=== PATIENT | male | born 1950 | race Caucasian/White ===

== ENCOUNTER → 2021-10-28 11:47 | Outpatient (BNVA) | payer MEDICARE, MEDICAID, SELFPAY | PROVIDERS: Visit Provider Nurse Practitioner Family | DX: M79.671 Pain in right foot (principal); M10.9 Gout, unspecified; L03.90 Cellulitis, unspecified | CPT/HCPCS: 80053; 84550; 85025 ==

== ENCOUNTER 2021-12-10 13:30 | Outpatient (CLI) | payer MEDICARE, MEDICAID, SELFPAY ==
--- NOTE | 2021-12-10 13:45 | MR_ITS ---
WS: [id number] MRI OF THE RIGHT FOOT WITHOUT GADOLINIUM ENHANCEMENT. INDICATION: Pain anterolateral foot. TECHNIQUE: Sagittal PD, sagittal STIR, axial T1 and STIR PD and T2 imaging. Coronal PD and T2 fat sat imaging. FINDINGS: Diffuse edema with nondisplaced slightly comminuted fractures third and fourth metatarsal. Additional fracture extends into the proximal shaft fourth metatarsal. Diffuse surrounding soft tissu e edema. Normal bone marrow signal in the fifth metatarsal base. Slightly comminuted nondisplaced fra ctures involving the base of the third metatarsal extending to the MTP joint. Additional suspected no ndisplaced fracture involving the base of the second metatarsal. First metatarsal is normal in appear ance. Additional small nondisplaced fracture involving the fifth metatarsal head with edema and small fracture line.Additional suspected nondisplaced fracture involving the lateral cuboid with diffuse e heather. Diffuse dorsal soft tissue edema overlying the metatarsals. Normal ankle mortise. Normal medial and lateral malleolus. Talar dome is normal. Normal calcaneus. Ac hilles enthesophyte. Normal talonavicular joint. Normal cuneiforms. Visualized Achilles is normal. Normal visualized peroneus longus and brevis. Normal partially visuali zed extensor and flexor compartment tendons. A few erosions involving the metatarsal heads. 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 Mild hallux valgus. MR/MR foot RT wo con* [id number] IMPRESSION: 1. Diffuse edema with nondisplaced slightly comminuted fractures involving the third and fourth metatarsal bases. Additional tiny nondisplaced fracture invol ving the second metatarsal base. 2. Diffuse edema involving the lateral cuboid with suspected tiny nondisplaced fracture. 3. Additional small nondisplaced fracture involving the fifth metatarsal head with edema and small fracture line 4. Diffuse edema involving the lateral foot soft tissues and dorsal foot soft tissues. 5. 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 Mild hallu x valgus.
== END 2021-12-10 13:31 | disposition home or self-care (01) ==
LOC: RADSHAW 13:34
PROVIDERS: PCP Nurse Practitioner Family; Visit Provider Nurse Practitioner Family
DX: R60.0 Localized edema; S92.334A Nondisplaced fracture of third metatarsal bone, right foot, initial encounter for closed fracture; S92.344A Nondisplaced fracture of fourth metatarsal bone, right foot, initial encounter for closed fracture; S92.354A Nondisplaced fracture of fifth metatarsal bone, right foot, initial encounter for closed fracture; X58.XXXA Exposure to other specified factors, initial encounter; M19.071 Primary osteoarthritis, right ankle and foot
CPT/HCPCS: 73718

== ENCOUNTER → 2022-01-15 09:20 | Outpatient (BNVA) | payer MEDICARE, MEDICAID, SELFPAY | PROVIDERS: PCP Nurse Practitioner Family; Visit Provider Nurse Practitioner Family | DX: M79.671 Pain in right foot (principal); M10.9 Gout, unspecified | CPT/HCPCS: 84550 ==

== ENCOUNTER 2022-02-02 14:54 | Outpatient (CLI) | payer MEDICARE, MEDICAID, SELFPAY | END 2022-02-02 14:55 | disposition home or self-care (01) | LOC: SPT 02-03 08:55 | PROVIDERS: PCP Nurse Practitioner Family; Visit Provider Podiatrist Foot & Ankle Surgery | DX: Z46.89 Encounter for fitting and adjustment of other specified devices (principal); M10.9 Gout, unspecified; M79.673 Pain in unspecified foot; M14.679 Charcot's joint, unspecified ankle and foot | CPT/HCPCS: 97760; L3030 ==

== ENCOUNTER → 2022-02-17 14:13 | Outpatient (BNVA) | payer MEDICARE, MEDICAID, SELFPAY | PROVIDERS: PCP Nurse Practitioner Family; Visit Provider Podiatrist Foot & Ankle Surgery | DX: M79.671 Pain in right foot (principal); S92.321A Displaced fracture of second metatarsal bone, right foot, initial encounter for closed fracture; S92.331A Displaced fracture of third metatarsal bone, right foot, initial encounter for closed fracture; S92.341A Displaced fracture of fourth metatarsal bone, right foot, initial encounter for closed fracture; S92.354G Nondisplaced fracture of fifth metatarsal bone, right foot, subsequent encounter for fracture with delayed healing; S92.211A Displaced fracture of cuboid bone of right foot, initial encounter for closed fracture; X58.XXXA Exposure to other specified factors, initial encounter | CPT/HCPCS: 73630 ==

== ENCOUNTER → 2024-07-04 13:42 | Outpatient (BNVA) | payer MEDICARE, MEDICAID, SELFPAY | PROVIDERS: PCP Nurse Practitioner Family; Visit Provider Specialist | DX: M25.551 Pain in right hip (principal) | CPT/HCPCS: 73502; 99204 ==

== ENCOUNTER → 2024-07-12 14:36 | Outpatient (BNVA) | payer MEDICARE, MEDICAID, SELFPAY | PROVIDERS: PCP Nurse Practitioner Family; Visit Provider Orthopaedic Surgery | DX: M43.17 Spondylolisthesis, lumbosacral region (principal) | CPT/HCPCS: 72110; 99204 ==

== ENCOUNTER → 2025-09-10 10:51 | Outpatient (BNVA) | payer MEDICARE, MEDICAID, SELFPAY | PROVIDERS: PCP Nurse Practitioner Family; Visit Provider Nurse Practitioner Family | DX: I10 Essential (primary) hypertension (principal) | CPT/HCPCS: 80053; 80061; 84436; 84443 ==